=== PATIENT | male | born 1960 | race African-American/Black ===

== ENCOUNTER 2021-03-12 07:42 | Emergency (ER) | payer MEDICARE ==
[~2021-03-12] VITALS: Ht 165.1 cm; Wt 122.5 kg
[2021-03-12] MEDS ORDERED: ASPIRIN 81 MG CHEW TAB PO ONE (07:45)
[2021-03-12 08:15] LABS: BASOPHILS % 0.2 % (0.0-1.0); EOSINOPHILS # (AUTO) 0.3 (0.0-0.4); EOSINOPHILS % 3.3 % (0.0-6.0); HEMATOCRIT 32.1 % (38.2-49.6); HEMOGLOBIN 9.9 g/dL (14.0-18.0); LYMPHOCYTES % 21.2 % (18.0-39.1); MEAN CORPUSCULAR HEMOGLOBIN 27.7 pg (28-32); MEAN CORPUSCULAR HGB CONC 30.8 g/dL (31-35); MEAN CORPUSCULAR VOLUME 89.9 fL (81-99); MONOCYTES # (AUTO) 0.8 (0.2-0.8); MONOCYTES % 8.1 % (4.4-11.3); NEUTROPHILS # (AUTO) 6.2 (2.1-6.9); NEUTROPHILS % 66.9 % (38.7-80.0); PLATELET COUNT 300 x10e3/uL (140-360); RED BLOOD COUNT 3.57 x10e6/uL (4.3-5.7); RED CELL DISTRIBUTION WIDTH 15.7 % (11.7-14.4)
[2021-03-12 08:44] LABS: ALANINE AMINOTRANSFERASE 14 IU/L (0-55); ALBUMIN 3.6 g/dL (3.5-5.0); ALBUMIN/GLOBULIN RATIO 1.1 (0.8-2.0); ALKALINE PHOSPHATASE 145 IU/L (40-150); ANION GAP 11.5 mmol/L (8-16); BLOOD UREA NITROGEN 19 mg/dL (7-26); BUN/CREATININE RATIO 18 (6-25); CALCIUM 8.9 mg/dL (8.4-10.2); CARBON DIOXIDE 23 mmol/L (22-29); CHLORIDE 107 mmol/L (98-107); CREATINE KINASE 154 IU/L (30-200); CREATININE, SERUM 1.08 mg/dL (0.72-1.25); EST GLOMERULAR FILTRATION RATE > 60 ML/MIN (60-); GLUCOSE 97 mg/dL (74-118); POTASSIUM 3.5 mmol/L (3.5-5.1); SODIUM 138 mmol/L (136-145)
[2021-03-12 12:55] VITALS: BP 142/78
== END 2021-03-12 12:59 | disposition home or self-care (01) ==
LOC: ER 08:07
DX: R06.02 Shortness of breath (principal); R53.83 Other fatigue; G47.30 Sleep apnea, unspecified; I10 Essential (primary) hypertension; J44.9 Chronic obstructive pulmonary disease, unspecified; I50.9 Heart failure, unspecified
CPT/HCPCS: 36415; 71045; 80053; 82550; 82553; 83880; 84484; 85025; 93005; 99284